=== PATIENT | female | born 1930 | race Caucasian/White ===

== ENCOUNTER 2016-07-13 11:02 | Inpatient (IN) | payer MEDICARE ==
[2016-07-13] MEDS ORDERED: PROVENTIL 2.5 MG/3 ML NEB IH ONE ×2 (11:08→11:29)
[2016-07-13] MEDS ORDERED: Sodium Chloride 0.9% 1000 ML 1,000 ML IV SCH (11:15)
[2016-07-13] MEDS ORDERED: Sodium Chloride 0.9% 1000 ML 1,000 ML ONE (11:31)
--- NOTE | 2016-07-13 11:33 | ERPHSYRPT ---
- History of Present Illness Time Seen by Provider: 07/13/16 11:05 Source: patient, EMS Patient Subjective Stated Complaint: PT STATES SHE HAS HAD SOME URINARY S/S AND COUGH FOR DAYS. Triage Nursing Assessment: PER EMS, SOB EN ROUTE AND NEB OPENED PT TO [facility] AND O2 SAT 88%. ON ARRIVAL, PT DENIED SOB AT PRESENT BUT MOIST COUGH NOTED. PT STATES SHE HAS HAD URINARY BURNING FOR DAYS AND 'HARD COUGH' AND 'DIDNT FEEL GOOD ENOUGH TO DRIVE TO DR. ALERT AND OREINTED X3. 3+ PITTING EDEMA TO LOWER EXTREM. PEDAL PULSES PRESENT. DIMINISHED LUNG SUAREZ Physician History: CC: cough Hx; 86 y/o pt of GUMARO Dyer. She has short of breath, malaise, cough. RA sat was 88%. Improved with EMS O2 and nebs. No fever. Some chills. No chest pain. Some dysuria. General weakness. Timing/Duration: today Severity: moderate Allergies/Adverse Reactions: aspirin Allergy (Severe, Verified 01/13/15 08:07) Hives developed severe reaction... swelling lips, hives, difficulty breathing, anaphylaxis Sulfa (Sulfonamide Antibiotics) Allergy (Severe, Verified 01/12/15 22:54) Hives Home Medications: Digoxin 0.125 mg Tablet [Lanoxin 0.125MG TABLET] 0.125 mg PO DAILY [History] Furosemide 80 mg [Lasix 80 mg] 2 tab PO DAILY 01/13/15 [History] Furosemide 80 mg [Lasix 80 mg] 80 mg PO 1400 01/13/15 [History] Potassium Chloride 20 Meq [Klor-Con 20 MEQ] 2 tab PO DAILY 01/13/15 [History] Potassium Chloride 20 Meq [Klor-Con 20 MEQ] 20 meq PO 1400 01/13/15 [History] Spironolactone 25 mg [Aldactone 25 MG] 2 tab PO DAILY 01/13/15 [History] Hx Tetanus, Diphtheria Vaccination/Date Given: Yes Hx Influenza Vaccination/Date Given: No Hx Pneumococcal Vaccination/Date Given: No Immunizations Up to Date: Yes - Review of Systems Constitutional: Chills, Malaise, No Fever Eyes: No Symptoms Ears, Nose, & Throat: Nose Congestion Respiratory: Cough, Dyspnea Cardiac: Edema, No Chest Pain Abdominal/Gastrointestinal: No Abdominal Pain, No Vomiting Genitourinary Symptoms: Dysuria All Other Systems: Reviewed and Negative - Past Medical History Pertinent Past Medical History: Yes Neurological History: No Pertinent History ENT History: Glaucoma Cardiac History: Arrhythmia, Congestive Heart Failure Respiratory History: No Pertinent History Endocrine Medical History: No Pertinent History Musculoskeletal History: No Pertinent History GI Medical History: No Pertinent History History: No Pertinent History Psycho-Social History: No Pertinent History Female Reproductive Disorders: No Pertinent History - Past Surgical History Past Surgical History: Yes Neuro Surgical History: No Pertinent History Cardiac: No Pertinent History Respiratory: No Pertinent History Gastrointestinal: No Pertinent History Genitourinary: No Pertinent History Musculoskeletal: No Pertinent History Female Surgical History: No Pertinent History Other Surgical History: tube left ear,oopherectomy, - Social History Smoking Status: Never smoker Exposure to second hand smoke: No Drug Use: none Patient Lives Alone: No - Nursing Vital Signs Nursing Vital Signs: Initial Vital Signs Temperature 99.2 F Temperature Source Rectal Pulse Rate 62 Respiratory Rate 20 Blood Pressure 111/52 Pain Intensity 0 - Physical Exam General Appearance: alert, other (loose cough) Eye Exam: PERRL/EOMI Ears, Nose, Throat Exam: moist mucous membranes Neck Exam: supple Respiratory Exam: rhonchi Cardiovascular Exam: regular rate/rhythm Gastrointestinal/Abdomen Exam: soft, No tenderness, No distention Back Exam: normal inspection Extremity Exam: pedal edema Neurologic Exam: alert, oriented x 3, cooperative, sensation nml, No motor deficits Skin Exam: warm, dry, No rash SpO2 Interpretation: normal SpO2: 96 Oxygen Delivery: Nasal Cannula - Course Nursing assessment & vital signs reviewed: Yes EKG Interpreted by Me: RATE (64), Sinus Rhythm, NORMAL AXIS, Non-specific ST Changes, Other (PVC's) - Radiology Exams cxr X-ray Interpretation: Reviewed by me, Discussed w/ radiologist (RLL pneumonia) Ordered Tests: Active Orders 24 hr Category Date Time Status Authors Motivational STAT Care 07/13/16 11:08 Active Cath for Specimen-Straight STAT Care 07/13/16 11:08 Active EKG-ER Only STAT Care 07/13/16 11:08 Active IV Insertion STAT Care 07/13/16 11:08 Active Oxygen-ED Only NASAL CANNULA 2 lpm Care 07/13/16 11:08 Active CHEST 1 VIEW (PORTABLE) Stat Exams 07/13/16 11:08 Completed ARTERIAL BLOOD GASES Urgent Lab 07/13/16 11:08 Completed BLOOD CULTURE Stat Lab 07/13/16 11:30 Received CBC W DIFF Stat Lab 07/13/16 11:20 Completed CMP Stat Lab 07/13/16 11:20 Completed CULTURE,SPUTUM Stat Lab 07/13/16 12:00 Received CULTURE,URINE Stat Lab 07/13/16 11:10 Received DIGOXIN Stat Lab 07/13/16 11:20 Completed Lactic Acid Urgent Lab 07/13/16 11:08 Completed PROTIME WITH INR Stat Lab 07/13/16 11:20 Completed PTT Stat Lab 07/13/16 11:20 Completed TROPONIN Stat Lab 07/13/16 11:20 Completed UA W/ MICROSCOPIC Stat Lab 07/13/16 11:10 Completed Respiratory Nebulizer STAT RT 07/13/16 11:09 Completed Medication Summary Generic Name Dose Route Start Last Admin Trade Name Freq PRN Reason Stop Dose Admin Sodium Chloride 1,000 mls @ 100 mls/hr 07/13/16 11:15 07/13/16 11:35 Sodium Chloride 0.9% 1000 Ml IV 08/12/16 11:14 100 mls/hr .Q10H KAYODE Administration Azithromycin 250 mls @ 125 mls/hr 07/13/16 12:07 Zithromax 500 Mg/ 250 Ml Nacl Premix IV 07/13/16 14:06 STAT ONE Discontinued Medications Generic Name Dose Route Start Last Admin Trade Name Freq PRN Reason Stop Dose Admin Albuterol Sulfate 2.5 mg 07/13/16 11:08 07/13/16 11:41 Proventil 2.5 Mg/3 Ml Neb IH 07/13/16 11:09 2.5 mg STAT ONE Administration Albuterol Sulfate Confirm 07/13/16 11:29 Proventil 2.5 Mg/3 Ml Neb Administered 07/13/16 11:30 Dose 2.5 mg IH .STK-MED ONE Sodium Chloride Confirm 07/13/16 11:31 Sodium Chloride 0.9% 1000 Ml Administered 07/13/16 11:32 Dose 1,000 mls @ ud .ROUTE .STK-MED ONE Ceftriaxone Sodium/Dextrose 50 mls @ 100 mls/hr 07/13/16 12:07 07/13/16 12:15 Rocephin 1 Gm-D5w 50 Ml Bag IV 07/13/16 12:36 100 mls/hr STAT ONE Administration Ceftriaxone Sodium/Dextrose Confirm 07/13/16 12:13 Rocephin 1 Gm-D5w 50 Ml Bag Administered 07/13/16 12:14 Dose 50 mls @ ud IV .STK-MED ONE Lab/Rad Data: Laboratory Result Diagrams 07/13/16 11:20 07/13/16 11:20 Laboratory Results 07/13/16 07/13/16 07/13/16 Range/Units 11:20 11:20 11:20 WBC (4.0-10.5) K/mm3 RBC (4.1-5.4) M/mm3 Hgb (12.0-16.0) gm/dl Hct (35-47) % MCV (78-100) fl MCH (26-32) pg MCHC (32-36) g/dl RDW (11.5-14.0) % Plt Count (150-450) K/mm3 MPV (6-9.5) fl Gran % (36.0-66.0) % Lymphocytes % (24.0-44.0) % Monocytes % (0.0-12.0) % Eosinophils % (0.00-5.0) % Basophils % (0.0-0.4) % Basophils # (0-0.4) INR 1.28 (0.8-3.0) PTT 33.6 (25.3-37.0) SECONDS Puncture Site pCO2 (35-45) mmHg pO2 (75-100) mmHg Base Excess (-2.0-2.0) O2 Saturation (94-100) g/dF ABG pH (7.35-7.45) ABG HCO3 (22-28) ABG O2 Sat (Measured) (95-100) % Dani Test A-a Gradient a/A Ratio Hemoglobin Carboxyhemoglobin (0.0-6.9) % THgb Methemoglobin (1.4-1.5) % Potassium 4.2 (3.5-5.1) Temperature C POC O2 Flow Rate % Sodium 141 (136-145) mEq/L Chloride 100 (98-107) mEq/L Carbon Dioxide 37.8 H (21-32) mEq/L Anion Gap 7.1 (5-15) MEQ/L BUN 57 H (9-20) mg/dL Creatinine 1.66 H (0.55-1.30) mg/dl Estimated GFR 31 ML/MIN Glucose 131 H (70-110) MG/DL Lactic Acid (0.4-2.0) Calcium 8.5 (8.5-10.1) mg/dL Total Bilirubin 0.8 (0.2-1.0) mg/dL AST 21 (15-37) U/L ALT 20 (12-78) U/L Alkaline Phosphatase 92 (46-116) U/L Troponin I 0.165 H* (0.000-0.056) ng/ml Serum Total Protein 7.0 (6.4-8.2) gm/dL Albumin 2.6 L (3.4-5.0) g/dL Ur Collection Type Urine Color (YELLOW) Urine Appearance (CLEAR) Urine pH (5-6) Ur Specific [place] (1.005-1.025) Urine Protein (Negative) Urine Glucose (UA) (NEGATIVE) mg/dL Urine Ketones (NEGATIVE) Urine Nitrite (NEGATIVE) Urine Bilirubin (NEGATIVE) Urine Urobilinogen (0-1) mg/dL Urine WBC (Auto) (NEGATIVE) Urine RBC (Auto) (0-5) Michael/ul Urine Microscopic WBC (0-5) /HPF Ur Epithelial Cells (FEW) /HPF Urine Bacteria (NEGATIVE) /HPF Hyaline Casts (0-2) /LPF Digoxin 0.49 L (0.9-2.0) ng/ml Specimen Received 07/13/16 07/13/16 07/13/16 Range/Units 11:20 11:10 11:08 WBC 10.5 (4.0-10.5) K/mm3 RBC 4.61 (4.1-5.4) M/mm3 Hgb 12.9 (12.0-16.0) gm/dl Hct 42.8 (35-47) % MCV 92.8 (78-100) fl MCH 28.0 (26-32) pg MCHC 30.1 L (32-36) g/dl RDW 14.7 H (11.5-14.0) % Plt Count 214 (150-450) K/mm3 MPV 10.7 H (6-9.5) fl Gran % 74.0 H (36.0-66.0) % Lymphocytes % 14.4 L (24.0-44.0) % Monocytes % 11.3 (0.0-12.0) % Eosinophils % 0.2 (0.00-5.0) % Basophils % 0.1 (0.0-0.4) % Basophils # 0.01 (0-0.4) INR (0.8-3.0) PTT (25.3-37.0) SECONDS Puncture Site LEFT RADIAL pCO2 71 H* (35-45) mmHg pO2 125 H* (75-100) mmHg Base Excess 9.7 H (-2.0-2.0) O2 Saturation 95.3 (94-100) g/dF ABG pH 7.34 L (7.35-7.45) ABG HCO3 38.3 H* (22-28) ABG O2 Sat (Measured) 99.4 (95-100) % Dani Test yes A-a Gradient -14 a/A Ratio 1.13 Hemoglobin 13.1 Carboxyhemoglobin 2.8 (0.0-6.9) % THgb Methemoglobin 1.3 L (1.4-1.5) % Potassium 4.2 (3.5-5.1) Temperature 37.0 C POC O2 Flow Rate 28 % Sodium (136-145) mEq/L Chloride (98-107) mEq/L Carbon Dioxide (21-32) mEq/L Anion Gap (5-15) MEQ/L BUN (9-20) mg/dL Creatinine (0.55-1.30) mg/dl Estimated GFR ML/MIN Glucose (70-110) MG/DL Lactic Acid 1.2 (0.4-2.0) Calcium (8.5-10.1) mg/dL Total Bilirubin (0.2-1.0) mg/dL AST (15-37) U/L ALT (12-78) U/L Alkaline Phosphatase (46-116) U/L Troponin I (0.000-0.056) ng/ml Serum Total Protein (6.4-8.2) gm/dL Albumin (3.4-5.0) g/dL Ur Collection Type CATH Urine Color YELLOW (YELLOW) Urine Appearance HAZY (CLEAR) Urine pH 5.0 (5-6) Ur Specific [place] 1.025 (1.005-1.025) Urine Protein 30 (Negative) Urine Glucose (UA) NEGATIVE (NEGATIVE) mg/dL Urine Ketones NEGATIVE (NEGATIVE) Urine Nitrite NEGATIVE (NEGATIVE) Urine Bilirubin SMALL (NEGATIVE) Urine Urobilinogen 1 (0-1) mg/dL Urine WBC (Auto) NEGATIVE (NEGATIVE) Urine RBC (Auto) NEGATIVE (0-5) Michael/ul Urine Microscopic WBC 0-2 (0-5) /HPF Ur Epithelial Cells MODERATE (FEW) /HPF Urine Bacteria FEW (NEGATIVE) /HPF Hyaline Casts 5-10 (0-2) /LPF Digoxin (0.9-2.0) ng/ml Specimen Received 07/13/16 110 - Progress Progress Note: 07/13/16 12:37 Pt has no chest pain. She reports prior heart scan at [facility] per Dr Busch remotely. She has obvious pneumonia and mild resp insuff. Troponin elevated as is creat. Called Dr Benson who will admit to ICU. Called Dr Peguero who will get echo and see tomorrow. Will see patient in: hospital (full admit) Counseled pt/family regarding: lab results, diagnosis, need for follow-up, rad results - Departure Time of Disposition: 12:38 Departure Disposition: In-patient Admission Clinical Impression: RLL pneumonia, Renal insufficiency, Elevated troponin Condition: Fair Critical Care Time: No Referrals: MARCE DYER SURVEY COMPILER [Primary Care Provider] -
[2016-07-13 11:40] LABS: Collection Type CATH
[2016-07-13 11:41] LABS: A-aADO2 -14; ARTERIAL BLD GAS O2 SATURATION 99.4 % (95-100); ARTERIAL BLOOD GAS BASE EXCESS 9.7 (-2.0-2.0); ARTERIAL BLOOD GAS FIO2 28 %; ARTERIAL BLOOD GAS PO2 125 mmHg (75-100); ARTERIAL BLOOD GAS pH 7.34 (7.35-7.45); Lactic Acid 1.2 (0.4-2.0)
[2016-07-13 11:42] LABS: ALLEN TEST OK? yes
[2016-07-13 11:47] LABS: COMPLETE URINE MICROSCOPIC? YES
--- NOTE | 2016-07-13 11:48 | XRAY ---
Indication: Cough. Comparison: December 09, 2015 Portable chest again hyperinflated with biapical pleural thickening. New right base infiltrate/atelectasis and small effusion. Cardiac silhouette obscures the left lung base. Remaining upper lungs clear. Heart is not enlarged for AP portable technique. Vascularity normal. Bony thorax intact again with osteopenia and degenerative changes. Impression: New right base infiltrate/atelectasis/effusion.
[2016-07-13 11:49] LABS: BASOPHIL % 0.1 % (0.0-0.4); Eosinophil % 0.2 % (0.00-5.0); Lymphocytes % 14.4 % (24.0-44.0); Mean Cell Volume 92.8 fl (78-100); Mean Platelet Volume 10.7 fl (6-9.5); Monocytes % 11.3 % (0.0-12.0); Platelet Count 214 K/mm3 (150-450); Red Blood Count 4.61 M/mm3 (4.1-5.4); Red Cell Distribution Width 14.7 % (11.5-14.0); White Blood Count 10.5 K/mm3 (4.0-10.5)
[2016-07-13 11:52] LABS: Bacteria FEW /HPF (NEGATIVE); Epithelial Cells MODERATE /HPF (FEW); WBC 0-2 /HPF (0-5)
[2016-07-13 11:57] LABS: INR 1.28 (0.8-3.0); PROTIME 14.2 SECONDS (9.95-12.35)
[2016-07-13 12:00] LABS: PTT 33.6 SECONDS (25.3-37.0)
[2016-07-13] MEDS ORDERED: ROCEPHIN 1 Gm-D5w 50 ml Bag** 50 ML IV ONE ×2 (12:07→12:13)
[2016-07-13] MEDS ORDERED: Zithromax 500 MG/ 250 ML NaCl Premix 250 ML IV ONE ×2 (12:07→12:38)
[2016-07-13 12:21] LABS: ALBUMIN 2.6 g/dL (3.4-5.0); ANION GAP 7.1 MEQ/L (5-15); BILIRUBIN,TOTAL 0.8 mg/dL (0.2-1.0); Carbon Dioxide 37.8 mEq/L (21-32); Potassium 4.2 mEq/L (3.5-5.1)
[2016-07-13 12:22] LABS: TROPONIN 0.165 ng/ml (0.000-0.056)
[2016-07-13] MEDS ORDERED: TYLENOL 325 MG PO PRN (13:07)
[2016-07-13] MEDS: DUONEB 0.5-3 MG/3 ml Neb IH SCH ×3 (14:46→23:11)
[2016-07-13] MEDS ORDERED: Sodium Chloride 0.9% 500 ML 500 ML IV ONE (18:02)
[2016-07-13] MEDS ORDERED: D5W/0.45NS W/ 20mEq KCl 1000 ML 1,000 ML IV ONE (18:05)
[2016-07-13] MEDS ORDERED: Pepcid 20 MG VIAL IV ONE (19:55)
[2016-07-13] MEDS ORDERED: ENOXAPARIN SODIUM ONE (19:56)
[2016-07-13] MEDS ORDERED: Alphagan P 0.15% OP ONE (20:03)
[2016-07-13] MEDS: Lanoxin 0.125MG TABLET PO SCH (20:30)
[2016-07-13] MEDS: Lopressor 25MG Tab PO SCH (20:31)
[2016-07-13] MEDS: Aldactone 25 MG PO SCH (20:32)
[2016-07-13] MEDS: Pepcid 20 MG VIAL IV SCH (20:33)
[2016-07-13] MEDS ORDERED: Xalatan OP SCH (22:00)
[2016-07-13] MEDS ORDERED: Alphagan P 0.15% OP SCH (22:00)
[2016-07-14] MEDS: Sodium Chloride 0.9% 1000 ML 1,000 ML IV SCH ×3 (01:22→20:40)
[2016-07-14 02:37] LABS: A-aADO2 97; ARTERIAL BLD GAS O2 SATURATION 89.7 % (95-100); ARTERIAL BLOOD GAS BASE EXCESS 7.5 (-2.0-2.0); ARTERIAL BLOOD GAS FIO2 36 %; ARTERIAL BLOOD GAS PO2 55 mmHg (75-100); ARTERIAL BLOOD GAS pH 7.26 (7.35-7.45)
[2016-07-14] MEDS: DUONEB 0.5-3 MG/3 ml Neb IH SCH ×6 (02:43→22:40)
[2016-07-14] MEDS ORDERED: ENOXAPARIN SODIUM SQ ONE (02:50)
[2016-07-14 03:50] LABS: A-aADO2 111; ARTERIAL BLD GAS O2 SATURATION 99.8 % (95-100); ARTERIAL BLOOD GAS BASE EXCESS 6.3 (-2.0-2.0); ARTERIAL BLOOD GAS FIO2 50 %; ARTERIAL BLOOD GAS PO2 169 mmHg (75-100); ARTERIAL BLOOD GAS pH 7.35 (7.35-7.45); BIPAP(E) 6; BIPAP(I) 14
--- NOTE | 2016-07-14 07:59 | CONS ---
CONSULT DATE: 07/13/2016 BRIEF HISTORY: This is an 86 year-old female who was seen because of elevated troponin I and atrial fibrillation. The patient was admitted following history of shortness of breath, coughing spells and noted temperature and was diagnosed to have pneumonia. She denies any chest pains. Troponin was obtained and this was elevated at 0.146. She did have a short bout of atrial fibrillation but converted back to normal spontaneously. She has a history of arrhythmia and has been seeing an [place] pediatric neurologist. She has never had myocardial infarction or previous congestive heart failure per her account. CARDIAC RISK FACTORS: Negative for diabetes. No definite history of hypertension. She does not smoke. No known hyperlipidemia. HOME MEDICATIONS: Combigan eye drops, digoxin, Furosemide, Xalatan, potassium, Spironolactone. 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 RESPIRATORY: Pneumonia. GI: Denies any heartburn, nausea or vomiting. : Negative for dysuria or hematuria. No flank pains. PERIPHERAL VASCULAR: No history of deep venous thrombosis. PAST SURGICAL HISTORY: Lens implant. SOCIAL HISTORY: She is still pretty much independent but she has a history of frequent falls. PHYSICAL EXAMINATION: Her blood pressure is 156/76 with a heart rate of 60, respirations about 18. GENERAL: The patient is an elderly female who is thin and looks frail who is not in any form of distress. HEENT: Unremarkable. Slightly pale conjunctivae. NECK: No significant JVD. CHEST: There are some crackles in the right lung field. CARDIAC: Heart tones are normal. Second heart sounds appears to be split. The rhythm is regular. ABDOMEN: Soft with normal bowel sounds. No bruit. EXTREMITIES: There is bilateral pedal edema with decreased distal pulses. LAB DATA AND DIAGNOSTIC TESTS: The EKG showed sinus rhythm with nonspecific ST-T wave changes in the precordial leads. IMPRESSION: In essence the patient presented with elevated troponin I with ongoing pneumonia, this may well be secondary to supply/demand miss match from ongoing infection versus coronary artery disease. At this point she is asymptomatic. Will continue with medical therapy. Will start her on a low dose of beta blockers together with digoxin. She did have a short bout of atrial fibrillation. Her SEBASTIAN VASc score is about 2. Ideally she should be anticoagulated but there are some concerns about her compliance and also her tendency to have frequent falls. . I will review her echocardiogram to assess left ventricular systolic function.
--- NOTE | 2016-07-14 08:05 | ECHO ---
Transthoracic echocardiographic examination and color Doppler was done on 07/13/2016. INDICATION: Elevated troponin I, shortness of breath, history of congestive heart failure. IMPRESSION: 1) NO REGIONAL WALL MOTION ABNORMALITY. ESTIMATED GLOBAL LEFT VENTRICULAR EJECTION FRACTION OF AROUND 60%. 2) TRACE MITRAL REGURGITATION. 3) MILD TRICUSPID REGURGITATION. RIGHT VENTRICULAR SYSTOLIC PRESSURE OF 52 MM OF MERCURY SUGGESTIVE OF MODERATE PULMONARY HYPERTENSION. 4) MILD PULMONIC INSUFFICIENCY. 5) MILDLY DILATED RIGHT-SIDED CHAMBERS. 6) DILATED INFERIOR VENA CAVA. The left ventricle is visualized and demonstrated adequate motion of all the segments. Estimated global left ventricular ejection fraction 60%. The left ventricular thickness is normal. The mitral valve is seen and this opens adequately. There is trace mitral regurgitation. Left atrium is normal. The aortic valve opens adequately. Right side chambers are mild to moderately dilated. There is mild tricuspid regurgitation. Right ventricular systolic pressure of 52 mm of Mercury suggestive of moderate pulmonary hypertension. There is also mild pulmonic insufficiency. The inferior vena cava appears to be mildly dilated.
[2016-07-14 08:22] LABS: ANION GAP 12.1 MEQ/L (5-15); Carbon Dioxide 32.9 mEq/L (21-32); Potassium 4.9 mEq/L (3.5-5.1)
--- NOTE | 2016-07-14 08:24 | HP ---
HISTORY OF PRESENT ILLNESS: This is an 86 year-old woman without a physician in the local area who usually lives alone. She reports she had a bad cough and shortness of breath. She also felt like she had a fever and was feeling cold and then hot. She reports that she was having some trouble breathing at home. Her family talked to her on the phone and according to the emergency room doctor's note they said she was disoriented which was not like her and so they called an ambulance. The patient reports that she is feeling better now. Her cough has been productive of some sputum. She was noticed to have run of ST-T that was caught on telemetry that stopped on its own. REVIEW OF SYSTEMS: She denies any chest pain. She denies any history of heart problems except that she is taking digoxin which she says is to regulate her heartbeat. She felt like her heart rate was high at home. She denies any abdominal pain although she said she had some earlier. She denies any lower extremity edema. Otherwise review of systems as in the history of present illness. PAST MEDICAL HISTORY: She is hard of hearing. She reports having implants in her eyes. The emergency room chart said she has history of congestive heart failure. PAST SURGICAL HISTORY: Only implants in her eyes. MEDICATIONS: Please see the home medication list. ALLERGIES: ASPIRIN, SULFA. SOCIAL HISTORY: She reports she lives alone. She denies any tobacco or alcohol use. FAMILY HISTORY: She reports her mother from congestive heart failure. Her aunt had problems with edema and her sister had problems with edema. PHYSICAL EXAMINATION: VITAL SIGNS: Temperature current 99F, temperature max 99.2F, heart rate 62 to 81, respiratory rate 18 to 20, blood pressure 111 to 147 over 41 to 66. Oxygen saturation 98% on 3 liters nasal cannula. GENERAL: The patient is sitting up in bed a pleasant talkative lady who is hard of hearing. She is alert and oriented x3. CVS: She has a regular rate and rhythm. No murmurs, gallops or rubs are appreciated. CHEST: Decreased breath sounds at the right base. No crackles. No wheezes. No rhonchi. ABDOMEN: Soft, nontender, nondistended with normal bowel sounds. EXTREMITIES: No clubbing, cyanosis or edema. SKIN: Warm, dry and intact. LABORATORY DATA AND TESTS: Her white blood cell count is 10,500 with 74% granulocytes and 14% lymphocytes. CMP revealed creatinine 1.66, glucose 131. Her troponin was elevated on admission at 0.165 and has been trending down since then. UA revealed moderate epithelial cells and few bacteria, 0 to 2 white blood cells. Digoxin 0.49. Respiratory infection panel was negative. Chest x-ray revealed right lower lobe infiltrate versus effusion please see the radiologist dictation for the full report. ASSESSMENT AND PLAN: 1) RIGHT LOWER LOBE PNEUMONIA: She has been started on oxygen. She is receiving breathing treatments and she was started on ceftriaxone and azithromycin. She seems to be stable from respiratory standpoint at this time. 2) NON-ST ELEVATION MYOCARDIAL INFARCTION: Her troponins are starting to trend down. Dr. Lawson, [employer], was consulted and saw the patient. He noted a D-dimer that was elevated and looks like he has now ordered a VQ scan. He started her on Lovenox 30 mg subcutaneously daily. 3) HISTORY OF SUPRAVENTRICULAR TACHYCARDIA: Will continue with digoxin and Dr. Lawson is seeing the patient this evening.
[2016-07-14 08:26] LABS: Granulocytes % 84.2 % (36.0-66.0); Lymphocytes % 7.1 % (24.0-44.0); Mean Cell Volume 94.7 fl (78-100); Mean Corpuscular Hemoglobin 27.9 pg (26-32); Monocytes % 8.7 % (0.0-12.0); Platelet Count 200 K/mm3 (150-450); Red Blood Count 4.34 M/mm3 (4.1-5.4); Red Cell Distribution Width 14.6 % (11.5-14.0); White Blood Count 12.1 K/mm3 (4.0-10.5)
[2016-07-14 08:30] LABS: A-aADO2 -18; ARTERIAL BLD GAS O2 SATURATION 99.7 % (95-100); ARTERIAL BLOOD GAS BASE EXCESS 7.8 (-2.0-2.0); ARTERIAL BLOOD GAS FIO2 36 %; ARTERIAL BLOOD GAS PO2 166 mmHg (75-100)
[2016-07-14 08:31] LABS: ARTERIAL BLOOD GAS pH 7.25 (7.35-7.45)
[2016-07-14 08:32] LABS: ALLEN TEST OK? yes
--- NOTE | 2016-07-14 08:42 | XRAY ---
Indication: Pneumonia. Lethargy. Comparison: One day earlier Portable chest demonstrates interval enlarging heart, vascular congestion, and increasing bibasilar effusions concerning for cardiac decompensation/fluid overload. Previous right base infiltrate/atelectasis diminished.
[2016-07-14] MEDS: ROCEPHIN 1 Gm-D5w 50 ml Bag** 50 ML IV SCH (09:23)
[2016-07-14 09:24] LABS: A-aADO2 65; ARTERIAL BLD GAS O2 SATURATION 99.7 % (95-100); ARTERIAL BLOOD GAS BASE EXCESS 7.2 (-2.0-2.0); ARTERIAL BLOOD GAS FIO2 40 %; ARTERIAL BLOOD GAS PO2 125 mmHg (75-100); ARTERIAL BLOOD GAS pH 7.29 (7.35-7.45); BIPAP(E) 6; BIPAP(I) 14
[2016-07-14 09:25] LABS: ALLEN TEST OK? YES
[2016-07-14] MEDS: Pepcid 20 MG VIAL IV SCH ×2 (09:33→21:28)
[2016-07-14] MEDS: Aldactone 25 MG PO SCH (09:35)
[2016-07-14] MEDS: Klor Con 10 MEQ PO SCH ×2 (09:55→16:51)
[2016-07-14] MEDS ORDERED: NON-FORMULARY ITEM (Potassium Chloride 20 Meq [Klor-Con 20 Meq] 20 MEQ) PO SCH (10:00)
[2016-07-14] MEDS ORDERED: FLUZONE HIGH-DOSE 2016-17 SYR IM ONE (10:00)
[2016-07-14] MEDS ORDERED: TIMOLOL OP SCH (10:00)
[2016-07-14] MEDS ORDERED: LASIX 80 MG PO SCH (10:00)
[2016-07-14] MEDS ORDERED: BABY ASPIRIN 81 MG CHEW PO SCH (10:00)
[2016-07-14] MEDS ORDERED: BRIMONIDINE TARTRATE OP SCH (10:00)
[2016-07-14] MEDS: Zithromax 500 MG/ 250 ML NaCl Premix 250 ML IV SCH (10:14)
--- NOTE | 2016-07-14 11:03 | XRAY ---
Indication: Elevated d-dimer. Two-dimensional sonogram and color Doppler imaging of the major venous vessels of the left and right leg was performed. Comparison: Left leg exam of March 14, 2015. No thrombus seen in the examined deep venous vessels of the left and right leg including greater saphenous veins. Veins demonstrate normal compressibility. Venous waveforms are normal with and without augmentation. Impression: Left and right leg negative for DVT.
[2016-07-14] MEDS: Lanoxin 0.125MG TABLET PO SCH (11:45)
[2016-07-14] MEDS ORDERED: PREVNAR 13 SYRINGE IM ONE (12:00)
[2016-07-14] MEDS: Lopressor 25MG Tab PO SCH ×2 (14:00→21:37)
[2016-07-14] MEDS: MEDICATION INTERVENTION MC PRN ×2 (14:20→21:43)
--- NOTE | 2016-07-14 14:40 | PCM.NOTE ---
Date and Time: 07/14/16 1435 Subjective Assessment: Her nurses note that she is more somnolent this AM. She had a blood gas done overnight that revealed carbon dioxide retention. These results were called to Dr. Lawson. She had been alert and oriented x 3 yesterday evening. - Review of Systems All Other Systems: Unable due to condition (She barely will open her eyes this AM to loud voice.) Objective Exam General Appearance: lethargy Neurologic Exam: other (somnolent, tries to open eyes to loud voice, hard of hearing) Skin Exam: normal color, warm, dry, No rash Respiratory Exam: diminished breath sounds, other (lungs diminished especially on the lower right lung field.), No crackles/rales, No rhonchi, No wheezing Cardiovascular Exam: regular rate/rhythm, normal heart sounds, No friction rub, No gallop, No tachycardia Gastrointestinal/Abdomen Exam: soft, normal bowel sounds, No tenderness, No distention, No mass Extremity Exam: normal inspection, other (no c/c/e) OBJECTIVE DATA Vital Signs: Vital Signs - 24 hr Temp Pulse Resp BP BP Pulse Ox 07/14/16 14:15 59 L 20 96 07/14/16 11:45 61 111/56 07/14/16 11:31 98 F 56 L 20 111/56 99 07/14/16 10:20 57 L 22 100 07/14/16 07:29 97.8 F 63 19 108/58 99 07/14/16 06:35 56 L 18 99 07/14/16 04:00 52 L 26 H 113/65 07/14/16 02:43 52 L 30 H 98 07/14/16 00:01 57 L 07/14/16 00:00 97.9 F 61 21 110/58 100 07/13/16 23:11 58 L 18 96 07/13/16 20:30 66 138/62 07/13/16 20:00 97.9 F 66 20 131/62 99 07/13/16 18:57 69 16 95 07/13/16 16:00 99 F 68 18 147/66 95 07/13/16 14:59 70 20 98 Oxygen-Last 24 hours O2 Percentage 31% O2 Percentage 4 Liters = 36% O2 Percentage 40% O2 Percentage 5 Liters = 40% O2 Percentage 5 Liters = 40% O2 Percentage 5 Liters = 40% Pain Assessment - Last Documented Pain Intensity 4 Pain Scale Used FLACC Intake and Output: Intake & Output 07/12/16 07/13/16 07/14/16 07/15/16 06:59 06:59 06:59 06:59 Intake Total 1765 200 Output Total 530 Balance 1235 200 Weight 72.3 kg Lab Results: Lab Results-Last 24 Hours 07/13/16 07/13/16 07/14/16 Range/Units 14:18 19:15 02:03 WBC (4.0-10.5) K/mm3 RBC (4.1-5.4) M/mm3 Hgb (12.0-16.0) gm/dl Hct (35-47) % MCV (78-100) fl MCH (26-32) pg MCHC (32-36) g/dl RDW (11.5-14.0) % Plt Count (150-450) K/mm3 MPV (6-9.5) fl Gran % (36.0-66.0) % Lymphocytes % (24.0-44.0) % Monocytes % (0.0-12.0) % Eosinophils % (0.00-5.0) % Basophils % (0.0-0.4) % Basophils # (0-0.4) Puncture Site RIGHT BRACHIAL pCO2 84 H* (35-45) mmHg pO2 55 L (75-100) mmHg Base Excess 7.5 H (-2.0-2.0) O2 Saturation 86.6 L (94-100) g/dF ABG pH 7.26 L (7.35-7.45) ABG HCO3 37.7 H* (22-28) ABG O2 Sat (Measured) 89.7 L (95-100) % Dani Test NOT APPLICABLE A-a Gradient 97 a/A Ratio 0.36 Hemoglobin 13.0 Carboxyhemoglobin 2.3 (0.0-6.9) % THgb Methemoglobin 1.1 L (1.4-1.5) % Potassium 4.9 (3.5-5.1) Temperature 37.0 C POC O2 Flow Rate 36 % Vent Mode Inspiratory BiPAP Expiratory BiPAP Sodium (136-145) mEq/L Chloride (98-107) mEq/L Carbon Dioxide (21-32) mEq/L Anion Gap (5-15) MEQ/L BUN (9-20) mg/dL Creatinine (0.55-1.30) mg/dl Estimated GFR ML/MIN Glucose (70-110) MG/DL Calcium (8.5-10.1) mg/dL Troponin I 0.146 H* 0.098 H* (0.000-0.056) ng/ml 07/14/16 07/14/16 07/14/16 Range/Units 03:37 05:22 05:22 WBC 12.1 H (4.0-10.5) K/mm3 RBC 4.34 (4.1-5.4) M/mm3 Hgb 12.1 (12.0-16.0) gm/dl Hct 41.1 (35-47) % MCV 94.7 (78-100) fl MCH 27.9 (26-32) pg MCHC 29.4 L (32-36) g/dl RDW 14.6 H (11.5-14.0) % Plt Count 200 (150-450) K/mm3 MPV 11.0 H (6-9.5) fl Gran % 84.2 H (36.0-66.0) % Lymphocytes % 7.1 L (24.0-44.0) % Monocytes % 8.7 (0.0-12.0) % Eosinophils % 0.0 (0.00-5.0) % Basophils % 0.0 (0.0-0.4) % Basophils # 0 (0-0.4) Puncture Site RIGHT BRACHIAL pCO2 61 H* (35-45) mmHg pO2 169 H* (75-100) mmHg Base Excess 6.3 H (-2.0-2.0) O2 Saturation 96.5 (94-100) g/dF ABG pH 7.35 (7.35-7.45) ABG HCO3 33.7 H* (22-28) ABG O2 Sat (Measured) 99.8 (95-100) % Dani Test NOT APPLICABLE A-a Gradient 111 a/A Ratio 0.60 Hemoglobin 12.6 Carboxyhemoglobin 2.0 (0.0-6.9) % THgb Methemoglobin 1.3 L (1.4-1.5) % Potassium 4.7 (3.5-5.1) Temperature 37.0 C POC O2 Flow Rate 50 % Vent Mode Inspiratory BiPAP 14 Expiratory BiPAP 6 Sodium (136-145) mEq/L Chloride (98-107) mEq/L Carbon Dioxide (21-32) mEq/L Anion Gap (5-15) MEQ/L BUN (9-20) mg/dL Creatinine (0.55-1.30) mg/dl Estimated GFR ML/MIN Glucose (70-110) MG/DL Calcium (8.5-10.1) mg/dL Troponin I 0.089 H* (0.000-0.056) ng/ml 07/14/16 07/14/16 07/14/16 Range/Units 05:22 08:11 09:20 WBC (4.0-10.5) K/mm3 RBC (4.1-5.4) M/mm3 Hgb (12.0-16.0) gm/dl Hct (35-47) % MCV (78-100) fl MCH (26-32) pg MCHC (32-36) g/dl RDW (11.5-14.0) % Plt Count (150-450) K/mm3 MPV (6-9.5) fl Gran % (36.0-66.0) % Lymphocytes % (24.0-44.0) % Monocytes % (0.0-12.0) % Eosinophils % (0.00-5.0) % Basophils % (0.0-0.4) % Basophils # (0-0.4) Puncture Site LEFT RADIAL RIGHT RADIAL pCO2 87 H* 76 H* (35-45) mmHg pO2 166 H* 125 H* (75-100) mmHg Base Excess 7.8 H 7.2 H (-2.0-2.0) O2 Saturation 96.9 96.4 (94-100) g/dF ABG pH 7.25 L* 7.29 L (7.35-7.45) ABG HCO3 38.2 H* 36.5 H* (22-28) ABG O2 Sat (Measured) 99.7 99.7 (95-100) % Dani Test yes YES A-a Gradient -18 65 a/A Ratio 1.12 0.66 Hemoglobin 12.8 12.9 Carboxyhemoglobin 1.6 2.1 (0.0-6.9) % THgb Methemoglobin 1.1 L 1.2 L (1.4-1.5) % Potassium 4.9 4.7 4.7 (3.5-5.1) Temperature 37.0 37.0 C POC O2 Flow Rate 36 40 % Vent Mode BiPAP Inspiratory BiPAP 14 Expiratory BiPAP 6 Sodium 141 (136-145) mEq/L Chloride 101 (98-107) mEq/L Carbon Dioxide 32.9 H (21-32) mEq/L Anion Gap 12.1 (5-15) MEQ/L BUN 62 H (9-20) mg/dL Creatinine 1.83 H (0.55-1.30) mg/dl Estimated GFR 28 ML/MIN Glucose 149 H (70-110) MG/DL Calcium 8.3 L (8.5-10.1) mg/dL Troponin I (0.000-0.056) ng/ml Radiology Exams: Radiology Procedures Category Date Time Status CHEST 1 VIEW (PORTABLE) Urgent Exams 07/14/16 08:11 Completed PULMONARY PERF VENTILATION [NUCMED] Routine Exams 07/14/16 08:00 Ordered VENOUS BILATERAL EXTREMITY [US] Routine Exams 07/14/16 08:00 Completed Impressions Echocardiogram Ultrasound 07/13/16 14:00 IMPRESSION: 1) NO REGIONAL WALL MOTION ABNORMALITY. ESTIMATED GLOBAL LEFT VENTRICULAR EJECTION FRACTION OF AROUND 60%. 2) TRACE MITRAL REGURGITATION. 3) MILD TRICUSPID REGURGITATION. RIGHT VENTRICULAR SYSTOLIC PRESSURE OF 52 MM OF MERCURY SUGGESTIVE OF MODERATE PULMONARY HYPERTENSION. 4) MILD PULMONIC INSUFFICIENCY. 5) MILDLY DILATED RIGHT-SIDED CHAMBERS. 6) DILATED INFERIOR VENA CAVA. Multi-Disciplinary Progress Notes: Multi-Disciplinary Progress Notes 07/14/16 07:34 Pharmacy Note by Chuck Weldon Please be aware of possible drug interaction with Zithromax and Lanoxin. May increase Lanoxin level. Initialized on 07/14/16 07:34 - END OF NOTE Assessment/Plan (1) Right lower lobe pneumonia Current Visit: Yes Status: Acute Assessment & Plan: Continue with ceftriaxone and azithromycin. Blood cultures and sputum culture in lab. Gram stain with moderate gram positive cocci in clusters and chains. Continue with oxgyen. Blood gas checked this AM and patient placed back on BiPAP. I called Dr. Nathaly Cerna and he agrees to see her consultation. Code(s): J18.1 - LOBAR PNEUMONIA, UNSPECIFIED ORGANISM (2) Elevated troponin Current Visit: Yes Status: Acute Assessment & Plan: Dr. Lawson, furniture restorer consulted and he has been following her. Her troponins have been trending down. Continue to monitor. Repeat chest X-ray I ordered this AM revealed cardiomegly and increased fluid and she is on lasix and spironolactone which the ICU nurse said Dr. Lawson is adjusting. I appreciate his help with Ms. Barrett. Code(s): R79.89 - OTHER SPECIFIED ABNORMAL FINDINGS OF BLOOD CHEMISTRY (3) Altered mental status, unspecified Current Visit: Yes Status: Acute Assessment & Plan: Most likely due to carbon dioxide retention from respiratory failure. Her nurse noted that her mental status improved after she had the bipap on this AM and she was able to eat lunch. Code(s): R41.82 - ALTERED MENTAL STATUS, UNSPECIFIED
[2016-07-14] MEDS ORDERED: ENOXAPARIN SODIUM SQ SCH (21:00)
[2016-07-14] MEDS: Lasix 40 MG/4 ML IV SCH (21:28)
[2016-07-14] MEDS: ENOXAPARIN SODIUM SQ SCH (21:33)
[2016-07-14] MEDS: Xalatan OP SCH (21:41)
[2016-07-15] MEDS: Sodium Chloride 0.9% 1000 ML 1,000 ML IV SCH (00:37)
[2016-07-15] MEDS: DUONEB 0.5-3 MG/3 ml Neb IH SCH ×5 (03:46→17:40)
[2016-07-15 05:39] LABS: Mean Cell Volume 94.1 fl (78-100); Mean Corpuscular Hemoglobin 27.6 pg (26-32); Mean Platelet Volume 10.5 fl (6-9.5); Platelet Count 194 K/mm3 (150-450); Red Blood Count 4.56 M/mm3 (4.1-5.4); Red Cell Distribution Width 14.7 % (11.5-14.0); White Blood Count 12.7 K/mm3 (4.0-10.5)
[2016-07-15 06:06] LABS: ANION GAP 10.2 MEQ/L (5-15); Carbon Dioxide 34.7 mEq/L (21-32); Potassium 3.9 mEq/L (3.5-5.1)
[2016-07-15 06:25] LABS: Total Cells Counted 100
[2016-07-15 06:27] LABS: ANISOCYTOSIS 1+; Platelet Estimate NORMAL (NORMAL); Poikilocytosis 1+; Polychromasia RARE
--- NOTE | 2016-07-15 07:51 | CONS ---
CONSULT DATE: 07/14/2016 HISTORY: Birdie Barrett is an 86 year-old pleasant woman who has been hospitalized with cough, shortness of breath and tachycardia. The patient was noted to have palpitations along with positive cardiac enzymes. She was seen by Dr. Lawson. The patient's blood gases obtained showed hypercapnic respiratory failure. She was treated with BiPAP. I received a call this morning from Dr. Benson reporting about her status. I advised that the patient be continued on BiPAP. Repeat blood gases did show improvement in pH. At the time of my evaluation this evening the patient has been weaned off of BiPAP. She is currently on oxygen via nasal cannula and appears comfortable. She is able to give history. The patient has been a nonsmoker but did have exposure to secondhand smoke. Her effort tolerance has been moderately reduced. She reports one prior history of pneumonia several years ago. PAST MEDICAL HISTORY: Positive for cardiac problems and possible congestive heart failure. She also has glaucoma and cataracts for which she recently had cataract surgery. PAST SURGICAL HISTORY: As above. MEDICATIONS: Her home medications included digoxin. PERSONAL AND SOCIAL HISTORY: She has been a nonsmoker, lives independently and is cared for by her daughter. MEDICATIONS: Home and current medications are reviewed. ALLERGIES: Allergies noted. PHYSICAL EXAMINATION: An elderly frail woman who appears comfortable. Vital signs noted. She is afebrile. Heart rate is 78, blood pressure 124/75. Saturating 95% nasal cannula. HEENT: Normocephalic. Pupils are reactive. Oral exam she is edentulous. NECK: Supple. CVS: First and second heart sounds with occasional irregular beat. RESPIRATORY: Diminished breath sounds. Increase in AP diameter of chest. Breath sounds are diminished. Crackles are heard. ABDOMEN: Soft. EXTREMITIES: Trace edema noted. LABORATORY DATA AND TESTS: Sputum culture is pending. Urine culture negative. Most recent blood gas showed pH of 7.29, pCO2 76, pO2 125. Sodium 141, potassium 4.9, chloride 101, bicarb 33, glucose 149, BUN 60, creatinine 1.8. White blood cell count 12.1, hemoglobin 41, PLT 200,000. Troponin 0.08. Venous Doppler was negative. Chest x-ray noted. ASSESSMENT: This is an 86 year old woman admitted with: 1) Acute hypercapnic and chronic hypoxic respiratory failure. 2) Probable underlying chronic obstructive pulmonary disease from secondhand smoke. 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 Right ventricular systolic pressure was 52 mm of Mercury. 4) Non-ST myocardial infarction. 5) Renal insufficiency appears chronic. 6) Recent cataract surgery. 7) Right lower lobe community acquired pneumonia. RECOMMENDATIONS: Continue BiPAP during the night and PRN during day. Continue IV antibiotics. Continue bronchodilators. Will obtain follow up in 48 hours. The patient has clinically has shown improvement, will benefit from continuous BiPAP as needed. I agree with anticoagulation with Lovenox, optimization of cardiac status per Dr. Lawson. Monitor renal function given the patient's age. Doppler's were negative. Clinical suspicion for pulmonary embolism appears less likely. The patient will benefit from home oxygen therapy and possible noninvasive ventilation upon discharge. Pulmonary function test upon discharge as well. Further recommendations pending clinical improvement. I will continue to follow. Thank you for allowing me to participate in the care of Birdie Barrett.
[2016-07-15] MEDS: Lasix 40 MG/4 ML IV SCH ×2 (09:23→20:50)
[2016-07-15] MEDS ORDERED: PREVNAR 13 SYRINGE IM ONE (10:00)
[2016-07-15] MEDS ORDERED: FLUZONE HIGH-DOSE 2016-17 SYR IM ONE (10:00)
[2016-07-15] MEDS: Pepcid 20 MG VIAL IV SCH ×2 (11:33→22:18)
--- NOTE | 2016-07-15 11:36 | XRAY ---
Indication: Short of breath. Elevated d-dimer. Cataract surgery April 2016. Patient received 5.0 mCi technetium 99 microaggregated albumin. Patient inhaled 36.9 mCi of aerosolized technetium 99 DTPA. Multiplanar imaging performed. Comparison: None Perfusion images demonstrates subtle diminished radiopharmaceutical activity in both lower lobes. No other perfusion defects. Incidentally the heart is enlarged. Ventilation images are limited due to marked heterogeneous radiopharmaceutical activity. The majority of the activity is seen centrally suggesting chronic obstructive disease. Small amount of ingested radiopharmaceutical activity in the GI system. Impression: 1. Ventilation images limited due to marked heterogeneous activity. Suspect chronic obstructive disease. 2. Perfusion images demonstrates diminished activity in both lower lobes. Also suspect cardiomegaly. Findings correspond to yesterday's chest radiograph findings for cardiomegaly and bilateral effusions. PIOPED criteria is low probability for pulmonary embolus.
[2016-07-15] MEDS: Lopressor 25MG Tab PO SCH ×2 (11:38→22:19)
[2016-07-15] MEDS: Lanoxin 0.125MG TABLET PO SCH (11:38)
[2016-07-15] MEDS: ROCEPHIN 1 Gm-D5w 50 ml Bag** 50 ML IV SCH (11:40)
[2016-07-15] MEDS: Aldactone 25 MG PO SCH (11:40)
[2016-07-15] MEDS: Klor Con 10 MEQ PO SCH ×2 (11:40→16:03)
[2016-07-15] MEDS: PATIENT OWN MEDICATION OP SCH ×2 (11:45→22:18)
[2016-07-15] MEDS: Zithromax 500 MG/ 250 ML NaCl Premix 250 ML IV SCH (12:33)
[2016-07-15] MEDS: ENOXAPARIN SODIUM SQ SCH (13:40)
--- NOTE | 2016-07-15 14:53 | PCM.NOTE ---
Date and Time: 07/15/16 9241 Subjective Assessment: Her nurse reports she woke up this am and asked if she missed breakfast. She reports her appetite is better. Her son and [id number] are at the bedside. Ms. Barrett agrees that she is too weak to go home. She feels like her breathing and cough are better but she is just generally weak. She complains of joint pain in her legs and back. - Review of Systems Constitutional: Fatigue Eyes: No Symptoms Ears, Nose, & Throat: No Symptoms Respiratory: Cough, Short Of Breath Cardiac: No Symptoms Abdominal/Gastrointestinal: No Symptoms Genitourinary Symptoms: No Symptoms, Other (catheter in place and patient does not want this removed right now) Skin: No Symptoms Objective Exam General Appearance: no apparent distress, alert Neurologic Exam: alert, cooperative, normal mood/affect Skin Exam: normal color, warm, dry Respiratory Exam: other (decreased breath sounds in right lower lung field, fine crackles scattered throughout, no wheezes, no respiratory distress or retractions.) Cardiovascular Exam: regular rate/rhythm, normal heart sounds, No murmur, No friction rub, No gallop Gastrointestinal/Abdomen Exam: soft, normal bowel sounds, No tenderness, No distention, No mass, No guarding Extremity Exam: other (no c/c/e, jono hose in place) OBJECTIVE DATA Vital Signs: Vital Signs - 24 hr Temp Pulse Resp BP BP Pulse Ox 07/15/16 12:00 98 F 61 15 109/47 93 L 07/15/16 11:42 64 20 96 07/15/16 11:38 65 122/58 07/15/16 08:00 66 07/15/16 07:10 56 L 20 96 07/15/16 04:00 97.8 F 56 L 22 126/59 98 07/15/16 03:46 56 L 20 100 07/15/16 00:00 98.0 F 53 L 14 111/66 07/14/16 22:40 55 L 20 99 07/14/16 20:00 98.0 F 58 L 24 109/45 99 07/14/16 18:36 62 19 100 07/14/16 16:00 98.9 F 59 L 19 130/59 96 Oxygen-Last 24 hours O2 Percentage 2 Liters = 28% O2 Percentage 2 Liters = 28% O2 Percentage 2 Liters = 28% O2 Percentage 2 Liters = 28% O2 Percentage 31% Pain Assessment - Last Documented Pain Intensity 0 Pain Scale Used 0-10 Pain Scale Intake and Output: Intake & Output 07/13/16 07/14/16 07/15/16 07/16/16 06:59 06:59 06:59 06:59 Intake Total 1765 4 Output Total 530 2600 Balance 1235 -576 Weight 72.3 kg 73.8 kg Lab Results: Lab Results-Last 24 Hours 07/15/16 07/15/16 Range/Units 05:20 05:20 WBC 12.7 H (4.0-10.5) K/mm3 RBC 4.56 (4.1-5.4) M/mm3 Hgb 12.6 (12.0-16.0) gm/dl Hct 42.9 (35-47) % MCV 94.1 (78-100) fl MCH 27.6 (26-32) pg MCHC 29.4 L (32-36) g/dl RDW 14.7 H (11.5-14.0) % Plt Count 194 (150-450) K/mm3 MPV 10.5 H (6-9.5) fl Segmented Neutrophils 91 H (36.0-66.0) % Lymphocytes (Manual) 7 L (24-44) % Monocytes (Manual) 2 (0.0-12.0) % Platelet Estimate NORMAL (NORMAL) Polychromasia RARE Poikilocytosis 1+ Anisocytosis 1+ Sodium 142 (136-145) mEq/L Potassium 3.9 (3.5-5.1) mEq/L Chloride 101 (98-107) mEq/L Carbon Dioxide 34.7 H (21-32) mEq/L Anion Gap 10.2 (5-15) MEQ/L BUN 48 H (9-20) mg/dL Creatinine 1.22 (0.55-1.30) mg/dl Estimated GFR 45 ML/MIN Glucose 104 (70-110) MG/DL Calcium 8.1 L (8.5-10.1) mg/dL Radiology Exams: Radiology Procedures Category Date Time Status CHEST 1 VIEW (PORTABLE) Urgent Exams 07/14/16 08:11 Completed PULMONARY PERF VENTILATION [NUCMED] Routine Exams 07/15/16 08:00 Completed VENOUS BILATERAL EXTREMITY [US] Routine Exams 07/14/16 08:00 Completed Impressions Echocardiogram Ultrasound 07/13/16 14:00 IMPRESSION: 1) NO REGIONAL WALL MOTION ABNORMALITY. ESTIMATED GLOBAL LEFT VENTRICULAR EJECTION FRACTION OF AROUND 60%. 2) TRACE MITRAL REGURGITATION. 3) MILD TRICUSPID REGURGITATION. RIGHT VENTRICULAR SYSTOLIC PRESSURE OF 52 MM OF MERCURY SUGGESTIVE OF MODERATE PULMONARY HYPERTENSION. 4) MILD PULMONIC INSUFFICIENCY. 5) MILDLY DILATED RIGHT-SIDED CHAMBERS. 6) DILATED INFERIOR VENA CAVA. Assessment/Plan (1) Right lower lobe pneumonia Current Visit: Yes Status: Acute Assessment & Plan: Continue current antibiotics. Dr. Nathaly Cerna, pulmonolgist, is following. Continue oxygen as needed and bipap if needed at night. She seems to have episodes of carbon dioxide retention. Code(s): J18.1 - LOBAR PNEUMONIA, UNSPECIFIED ORGANISM (2) Elevated troponin Current Visit: Yes Status: Acute Assessment & Plan: Most likely due to non ST elev PR. Code(s): R79.89 - OTHER SPECIFIED ABNORMAL FINDINGS OF BLOOD CHEMISTRY (3) Altered mental status, unspecified Current Visit: Yes Status: Acute Assessment & Plan: Resolved now. Code(s): R41.82 - ALTERED MENTAL STATUS, UNSPECIFIED (4) Elevated d-dimer Current Visit: Yes Status: Acute Assessment & Plan: VQ scan today with low probability of PE Code(s): R79.89 - OTHER SPECIFIED ABNORMAL FINDINGS OF BLOOD CHEMISTRY (5) Paroxysmal a-fib Current Visit: Yes Status: Acute Assessment & Plan: Currently on lovenox. Anticoagulation recommendations per Dr. Lawson's recommendations. Code(s): I48.0 - PAROXYSMAL ATRIAL FIBRILLATION
[2016-07-15] MEDS ORDERED: ENOXAPARIN SODIUM SQ SCH (22:00)
[2016-07-15] MEDS: Xalatan OP SCH (22:18)
[2016-07-16] MEDS: DUONEB 0.5-3 MG/3 ml Neb IH SCH ×2 (05:11→10:42)
[2016-07-16 05:46] LABS: Mean Cell Volume 95.1 fl (78-100); Mean Corpuscular Hemoglobin 27.3 pg (26-32); Mean Platelet Volume 10.1 fl (6-9.5); Platelet Count 193 K/mm3 (150-450); Red Cell Distribution Width 14.6 % (11.5-14.0); White Blood Count 11.6 K/mm3 (4.0-10.5)
[2016-07-16 06:05] LABS: ANION GAP 5.8 MEQ/L (5-15); Carbon Dioxide 38.3 mEq/L (21-32); Potassium 4.3 mEq/L (3.5-5.1)
[2016-07-16 07:20] LABS: BAND 3 % (0.0-2.0); Basophil 1 % (0.0-1.0); Total Cells Counted 100
[2016-07-16 07:21] LABS: ANISOCYTOSIS 2+; Basophilic Stippling 1+; Platelet Estimate NORMAL (NORMAL)
[2016-07-16] MEDS: Lanoxin 0.125MG TABLET PO SCH (08:36)
[2016-07-16] MEDS: Lopressor 25MG Tab PO SCH (08:37)
[2016-07-16] MEDS: Aldactone 25 MG PO SCH (08:38)
[2016-07-16] MEDS: Klor Con 10 MEQ PO SCH (08:38)
[2016-07-16] MEDS: Pepcid 20 MG VIAL IV SCH (08:39)
[2016-07-16] MEDS: Lasix 40 MG/4 ML IV SCH (08:39)
[2016-07-16] MEDS: PATIENT OWN MEDICATION OP SCH (08:40)
[2016-07-16] MEDS: ROCEPHIN 1 Gm-D5w 50 ml Bag** 50 ML IV SCH (08:41)
[2016-07-16] MEDS ORDERED: Dextrose 5%-1/4NS IV Soln. 1000 ML 1,000 ML IV SCH (09:00)
[2016-07-16] MEDS: Zithromax 500 MG/ 250 ML NaCl Premix 250 ML IV SCH (10:08)
[2016-07-16 11:23] VITALS: BP 128/61; PULSE 54; O2SAT 99
[2016-07-16] MEDS ORDERED: XARELTO 10 MG TABLET PO SCH (17:00)
--- NOTE | 2016-07-19 10:32 | DS ---
DISCHARGE DIAGNOSIS: 1. RIGHT LOWER LOBE PNEUMONIA. 2. NON-ST ELEVATION MYOCARDIAL INFARCTION. 3. ALTERED MENTAL STATUS NOW RESOLVED. 4. ELEVATED D-DIMER, RULED OUT FOR PULMONARY EMBOLISM. 5. PAROXYSMAL ATRIAL FIBRILLATION. DISCHARGE PHYSICAL EXAM: VITALS: Temperature current 97.4, temperature maximum 98.3, heart rate 59-67, respiratory rate 16-18, O2 saturation 97% on 1-2 liters nasal cannula. They have documented 85% on room air. BP 108-122/59-63, weight 73.8 Kg. GENERAL: The patient is a pleasant lady sitting up in bed in no acute distress eating her breakfast. CVS: She has a regular rate and rhythm. No murmurs, gallops, or rubs are appreciated. CHEST: She has decreased breath sounds at the right base, normal on the left. No retractions. No wheezing. No rhonchi. ABDOMEN: Soft, nontender, nondistended with normal bowel sounds. EXTREMITIES: No clubbing, cyanosis, or edema. SKIN: Warm, dry, and intact. HOSPITAL COURSE: 1. Right lower lobe pneumonia. She has been on ceftriaxone and azithromycin which were started on 07/13/16. She will continue these. Will plan to discharge to a Swing Bed for continued IV antibiotics. Will continue his O2 PRN. She may need to go to rehab in the longterm after Swing Bed with O2. 2. Non-ST elevation myocardial infarction. Her troponins were slightly elevated. Spinner Continuous, Dr. Lawson, was consulted and saw the patient and she has been on an aspirin. 3. Altered mental status. This has now resolved. Most likely due to respiratory failure with high CO2 levels. She required BIPAP during her hospitalization. Dr. Nathaly Cerna, shade matcher, was consulted and saw the patient. 4. Elevated d-dimer. She had a chest CT that was negative for pulmonary embolism. She is currently on Lovenox 60 mg subq daily and I have asked the nurse to clarify what anticoagulation Dr. Lawson wants her on because she does have a history of paroxysmal atrial fibrillation. 5. Paroxysmal atrial fibrillation. Again, she is on Lovenox right now. Will clarify with Dr. Lawson what he would like for her to be on. DISCHARGE MEDICATIONS: The same as her current medications. DISPOSITION: The patient will be discharged to a Swing Bed. Will plan to have her in Swing Bed over the weekend. We checked a chest x-ray on Tuesday and possibly discharge her for rehab to [facility] after this. Will as physical therapy and occupational therapy to see her.
== END 2016-07-16 14:00 | disposition swing bed (61) | DRG 193 ==
LOC: ED 11:02 → ICU 13:04 → MED SURG 07-15 14:16
PROVIDERS: ADMIT Internal Medicine; ATTEND Internal Medicine
DX: J18.9 Pneumonia, unspecified organism (principal); I21.4 Non-ST elevation (NSTEMI) myocardial infarction; J96.02 Acute respiratory failure with hypercapnia; J44.1 Chronic obstructive pulmonary disease with (acute) exacerbation; J96.11 Chronic respiratory failure with hypoxia; R41.82 Altered mental status, unspecified; R79.1 Abnormal coagulation profile; I48.0 Paroxysmal atrial fibrillation; I27.81 Cor pulmonale (chronic); I27.2 Other secondary pulmonary hypertension; I34.0 Nonrheumatic mitral (valve) insufficiency; N18.9 Chronic kidney disease, unspecified; I07.1 Rheumatic tricuspid insufficiency; Z98.890 Other specified postprocedural states; Z79.899 Other long term (current) drug therapy
CPT/HCPCS: 36415; 36600; 71010; 78582; 80048; 80053; 80162; 81000; 82375; 82803; 83605; 84484; 85025; 85379; 85610; 85730; 87040; 87070; 87077; 87086; 87631; 90670; 93005; 93041; 93306; 93970; 94002; 94640; 94760; 94770; 96360; 96361; 96365; 96366; 99285; A9540; A9567; J0456; J0696; J1650; J1940; P9612

== ENCOUNTER 2016-07-16 13:39 | Inpatient (IN) | payer MEDICARE ==
[2016-07-16] MEDS ORDERED: TYLENOL 325 MG PO PRN (14:28)
[2016-07-16] MEDS: DUONEB 0.5-3 MG/3 ml Neb IH SCH ×2 (14:41→18:52)
[2016-07-16] MEDS: XARELTO 10 MG TABLET PO SCH (18:26)
[2016-07-16] MEDS: Lopressor 25MG Tab PO SCH (21:05)
[2016-07-16] MEDS: Xalatan OP SCH (21:06)
[2016-07-16] MEDS: Pepcid 20 MG VIAL IV SCH (21:06)
[2016-07-16] MEDS: Lasix 40 MG/4 ML IV SCH (21:06)
[2016-07-16] MEDS: PATIENT OWN MEDICATION OP SCH (21:08)
[2016-07-17] MEDS: Dextrose 5%-1/4NS IV Soln. 1000 ML 1,000 ML IV SCH (02:22)
[2016-07-17 06:22] LABS: Mean Cell Volume 97.2 fl (78-100); Mean Corpuscular Hemoglobin 27.9 pg (26-32); Mean Platelet Volume 10.2 fl (6-9.5); Platelet Count 194 K/mm3 (150-450); Red Blood Count 3.87 M/mm3 (4.1-5.4); Red Cell Distribution Width 14.8 % (11.5-14.0); White Blood Count 10.5 K/mm3 (4.0-10.5)
[2016-07-17 06:29] LABS: ANION GAP -2.3 MEQ/L (5-15); Carbon Dioxide 40.1 mEq/L (21-32); Potassium 4.4 mEq/L (3.5-5.1)
[2016-07-17] MEDS: DUONEB 0.5-3 MG/3 ml Neb IH SCH ×4 (06:57→19:25)
[2016-07-17 08:28] LABS: Basophil 1 % (0.0-1.0); Eosinophil 3 % (0.00-3.0); Platelet Estimate NORMAL (NORMAL); Total Cells Counted 100
[2016-07-17 08:29] LABS: Polychromasia 2+
[2016-07-17] MEDS: Lanoxin 0.125MG TABLET PO SCH (08:49)
[2016-07-17] MEDS: Pepcid 20 MG VIAL IV SCH ×2 (08:49→21:15)
[2016-07-17] MEDS: Aldactone 25 MG PO SCH (08:49)
[2016-07-17] MEDS: Lopressor 25MG Tab PO SCH ×2 (08:49→21:14)
[2016-07-17] MEDS: Lasix 40 MG/4 ML IV SCH ×2 (08:49→21:13)
[2016-07-17] MEDS: Zithromax 500 MG/ 250 ML NaCl Premix 250 ML IV SCH (08:50)
[2016-07-17] MEDS: PATIENT OWN MEDICATION OP SCH ×2 (08:50→21:14)
[2016-07-17] MEDS: ROCEPHIN 1 Gm-D5w 50 ml Bag** 50 ML IV SCH (08:50)
[2016-07-17] MEDS ORDERED: Aplisol ID SCH (10:00)
[2016-07-17] MEDS: XARELTO 10 MG TABLET PO SCH (16:15)
[2016-07-17] MEDS: Xalatan OP SCH (21:15)
[2016-07-18 05:55] LABS: Mean Cell Volume 95.8 fl (78-100); Mean Platelet Volume 10.1 fl (6-9.5); Platelet Count 216 K/mm3 (150-450); Red Cell Distribution Width 14.7 % (11.5-14.0); White Blood Count 9.3 K/mm3 (4.0-10.5)
[2016-07-18 06:00] LABS: Mean Corpuscular Hemoglobin 27.7 pg (26-32)
[2016-07-18 06:08] LABS: BLOOD UREA NITROGEN 29 mg/dL (9-20); CHLORIDE 102 mEq/L (98-107); Carbon Dioxide 39.5 mEq/L (21-32); Glucose 111 MG/DL (70-110); Potassium 4.3 mEq/L (3.5-5.1); SODIUM 142 mEq/L (136-145)
[2016-07-18] MEDS: DUONEB 0.5-3 MG/3 ml Neb IH SCH ×4 (06:53→17:18)
[2016-07-18 08:52] LABS: BAND 3 % (0.0-2.0); Eosinophil 1 % (0.00-3.0); Total Cells Counted 100
[2016-07-18 08:53] LABS: Platelet Estimate NORMAL (NORMAL)
[2016-07-18] MEDS: Dextrose 5%-1/4NS IV Soln. 1000 ML 1,000 ML IV SCH (09:44)
[2016-07-18] MEDS: Lasix 40 MG/4 ML IV SCH ×2 (09:48→21:13)
[2016-07-18] MEDS: PATIENT OWN MEDICATION OP SCH ×2 (09:50→21:14)
[2016-07-18] MEDS: ROCEPHIN 1 Gm-D5w 50 ml Bag** 50 ML IV SCH (09:56)
[2016-07-18] MEDS: Aldactone 25 MG PO SCH (09:57)
[2016-07-18] MEDS: Lopressor 25MG Tab PO SCH ×2 (09:58→21:13)
[2016-07-18] MEDS: Zithromax 500 MG/ 250 ML NaCl Premix 250 ML IV SCH (10:36)
[2016-07-18] MEDS: Pepcid 20 MG VIAL IV SCH ×2 (10:36→21:14)
[2016-07-18] MEDS: Lanoxin 0.125MG TABLET PO SCH (11:44)
[2016-07-18] MEDS: XARELTO 10 MG TABLET PO SCH (17:01)
[2016-07-18] MEDS: Xalatan OP SCH (21:14)
[2016-07-19 05:45] LABS: Mean Cell Volume 95.8 fl (78-100); Mean Platelet Volume 10.2 fl (6-9.5); Platelet Count 196 K/mm3 (150-450); Red Blood Count 4.03 M/mm3 (4.1-5.4); Red Cell Distribution Width 14.5 % (11.5-14.0)
[2016-07-19 05:52] LABS: Mean Corpuscular Hemoglobin 27.7 pg (26-32)
[2016-07-19 06:02] LABS: ANION GAP 5.1 MEQ/L (5-15); BLOOD UREA NITROGEN 24 mg/dL (9-20); CHLORIDE 101 mEq/L (98-107); Carbon Dioxide 41.6 mEq/L (21-32); Glucose 104 MG/DL (70-110); Potassium 4.2 mEq/L (3.5-5.1); SODIUM 144 mEq/L (136-145)
[2016-07-19 06:12] LABS: Eosinophil 6 % (0.00-3.0); Platelet Estimate NORMAL (NORMAL); Total Cells Counted 100
[2016-07-19] MEDS: DUONEB 0.5-3 MG/3 ml Neb IH SCH (06:14)
[2016-07-19] MEDS: Lasix 40 MG/4 ML IV SCH ×2 (08:54→21:42)
[2016-07-19] MEDS: Aldactone 25 MG PO SCH (08:55)
[2016-07-19] MEDS: Lanoxin 0.125MG TABLET PO SCH (08:55)
[2016-07-19] MEDS: Lopressor 25MG Tab PO SCH ×2 (08:55→21:43)
[2016-07-19] MEDS: ROCEPHIN 1 Gm-D5w 50 ml Bag** 50 ML IV SCH (08:55)
[2016-07-19] MEDS: Pepcid 20 MG VIAL IV SCH ×2 (08:55→21:42)
[2016-07-19] MEDS: PATIENT OWN MEDICATION OP SCH ×2 (08:56→21:43)
[2016-07-19] MEDS ORDERED: DUONEB 0.5-3 MG/3 ml Neb IH PRN (09:39)
[2016-07-19] MEDS: XARELTO 10 MG TABLET PO SCH (17:18)
[2016-07-19] MEDS: Xalatan OP SCH (21:43)
[2016-07-20 06:54] VITALS: BP 125/58
[2016-07-20 07:44] VITALS: O2SAT 96
[2016-07-20] MEDS: Lopressor 25MG Tab PO SCH ×2 (08:30→22:06)
[2016-07-20] MEDS: Aldactone 25 MG PO SCH (08:31)
[2016-07-20] MEDS: Lasix 40 MG/4 ML IV SCH ×2 (08:31→22:06)
[2016-07-20] MEDS: Pepcid 20 MG VIAL IV SCH ×2 (08:31→22:07)
[2016-07-20] MEDS: PATIENT OWN MEDICATION OP SCH ×2 (08:31→22:07)
[2016-07-20] MEDS: ROCEPHIN 1 Gm-D5w 50 ml Bag** 50 ML IV SCH (08:32)
[2016-07-20] MEDS: Lanoxin 0.125MG TABLET PO SCH (08:37)
[2016-07-20 08:38] VITALS: PULSE 54
[2016-07-20] MEDS: Dextrose 5%-1/4NS IV Soln. 1000 ML 1,000 ML IV SCH ×3 (08:40→22:06)
--- NOTE | 2016-07-20 10:06 | XRAY ---
Indication: Pneumonia. Comparison: July 14, 2016 Portable chest again demonstrates cardiomegaly, vascular congestion, and interval mild increasing bibasilar effusions/atelectasis again favoring CHF. Superimposed pneumonia not completely excluded. Stable COPD and right apical pleural thickening.
--- NOTE | 2016-07-20 16:55 | PCM.DCORD ---
- Discharge Discharge Date: 07/20/16 Disposition: Skilled Care @ [facility] Condition: Stable Prescriptions: New Albuterol/Ipratropium 3ml Neb* [DUONEB 0.5-3 MG/3 ml Neb] 3 ml IH Q4HPRN PRN #0 ampul.neb PRN Reason: Shortness Of Breath/Wheezing Levofloxacin 750 mg PO Q48H #3 tablet Metoprolol Tartrate 25 mg [Lopressor 25MG Tab] 12.5 mg PO BID #0 tab Acetaminophen 325 mg [Tylenol 325 mg] 650 mg PO Q4H PRN PRN #0 tablet PRN Reason: Pain And/Or Fever Rivaroxaban 10 mg Tablet [Xarelto 10 mg Tablet] 15 mg PO DINNER #0 tablet Continue Digoxin 0.125 mg Tablet [Lanoxin 0.125MG TABLET] 0.125 mg PO DAILY Potassium Chloride 20 Meq [Klor-Con 20 MEQ] 20 meq PO BID Spironolactone 25 mg [Aldactone 25 MG] 1 tab PO DAILY Furosemide 80 mg [Lasix 80 mg] 1 tab PO BID Latanoprost [Xalatan] 2.5 ml OP HS Brimonidine Tartrate/Timolol [Combigan 0.2%-0.5% Eye Drops] 10 ml OP BID Additional Instructions: Dr. Estrada to follow at [facility] as medical review specialist please. Oxygen 2 liters by nasal cannula. PT/OT to evaluate and treat for deconditioning. Follow up with: MARCE GEORGES NP [Primary Care Provider] - 1 Week JOSEPHINE HOUGH [ACTIVE STAFF] - 1 Week Forms: Patient Portal Information
[2016-07-20] MEDS: XARELTO 10 MG TABLET PO SCH (17:09)
[2016-07-20] MEDS: Xalatan OP SCH (22:08)
[2016-07-27] MEDS ORDERED: Aplisol ID SCH (10:00)
== END 2016-07-20 22:50 | DRG 193 ==
LOC: MED SURG 14:00
PROVIDERS: ADMIT Internal Medicine; ATTEND Internal Medicine
DX: J18.9 Pneumonia, unspecified organism (principal); I21.4 Non-ST elevation (NSTEMI) myocardial infarction; I50.9 Heart failure, unspecified; R79.89 Other specified abnormal findings of blood chemistry; Z79.01 Long term (current) use of anticoagulants; Z79.899 Other long term (current) drug therapy
CPT/HCPCS: 36415; 71020; 80048; 85025; 94640; 94760; J0456; J0696; J1940